=== PATIENT | male | born 1940 | race Caucasian/White ===

== ENCOUNTER 2017-03-10 10:53 | Emergency (ER) | payer MEDICARE ==
[~2017-03-10] VITALS: Ht 170.2 cm; Wt 70.0 kg
[2017-03-10] MEDS ORDERED: METFORMIN500 MG PO (11:12)
[2017-03-10] MEDS ORDERED: METOPROLOL SUC100 MG PO (11:13)
[2017-03-10] MEDS ORDERED: LISINOP/HCTZ1 TA1 PO (11:14)
[2017-03-10] MEDS ORDERED: ASPIRIN81 MG PO (11:15)
[2017-03-10] MEDS ORDERED: ALPHAGAN P0.1 % OD (11:16)
[2017-03-10] MEDS ORDERED: LATANOPROST0.005 % OU (11:17)
[2017-03-10] MEDS ORDERED: AMLODIPINE5 MG PO (11:19)
[2017-03-10] MEDS ORDERED: GLIPIZIDE5 MG PO (11:23)
[2017-03-10] MEDS ORDERED: TRAMADOL HCL50 MG PO (11:24)
[2017-03-10 11:48] LABS: HEMATOCRIT 45.9 % (39.0-50.0); HEMOGLOBIN 16.1 g/dl (14.0-18.0); IMMATURE GRANULOCYTES 0.3 % (0.0-1.0); MEAN CELL VOLUME 91.4 fL CALC (80.0-100.0); MEAN CORPUSCULAR HGB 32.1 pG CALC (26.0-32.0); MEAN CORPUSCULAR HGB CONC 35.1 g/L CALC (32.0-36.0); NEUT# 4.74 thou/uL (1.82-7.42); RED BLOOD COUNT 5.02 mill/uL (4.70-6.10); RED CELL DISTRI WIDTH 12.9 % (11.5-15.5)
[2017-03-10 12:11] LABS: ANION GAP 14 (6-22 (CALC)); BUN 12 mg/dL (8-23); BUN/CREATININE RATIO 16 (12-20 (CALC)); CARBON DIOXIDE 28 mmol/l (22-30); CHLORIDE 100 mmol/l (95-108); CREATININE 0.8 mg/dL (0.7-1.3); GFR > 60 ML/MIN (>=60 (CALC)); GFR FOR AFR.AMER. > 60 ML/MIN (>=60 (CALC)); POTASSIUM 4.2 mmol/l (3.5-5.1); SODIUM 138 mmol/l (137-146)
[2017-03-10 14:44] VITALS: BP 132/64
== END 2017-03-10 14:47 | disposition home or self-care (01) ==
LOC: ED 10:53
PROVIDERS: Family Medicine
DX: H57.8 Other specified disorders of eye and adnexa (principal); H54.62 Unqualified visual loss, left eye, normal vision right eye; I10 Essential (primary) hypertension; Z95.5 Presence of coronary angioplasty implant and graft
CPT/HCPCS: Q9967

== ENCOUNTER → 2018-04-19 | Outpatient (REF) | payer MEDICARE ==
[~2018-04-19] MED LIST: ALPHAGAN P0.1 % OD; AMLODIPINE5 MG PO; ASPIRIN81 MG PO; GLIPIZIDE5 MG PO; LATANOPROST0.005 % OU; LISINOP/HCTZ1 TA1 PO; METFORMIN500 MG PO; METOPROLOL SUC100 MG PO; TRAMADOL HCL50 MG PO
[2018-04-19 12:23] LABS: HEMATOCRIT 44.4 % (39.0-50.0); HEMOGLOBIN 15.4 g/dl (14.0-18.0); IMMATURE GRANULOCYTES 0.4 % (0.0-5.0); MEAN CELL VOLUME 90.8 fL CALC (80.0-100.0); MEAN CORPUSCULAR HGB 31.5 pG CALC (26.0-32.0); MEAN CORPUSCULAR HGB CONC 34.7 g/L CALC (32.0-36.0); NEUT# 4.88 thou/uL (1.82-7.42); RED BLOOD COUNT 4.89 mill/uL (4.70-6.10); RED CELL DISTRI WIDTH 12.5 % (11.5-15.5)
[2018-04-19 12:48] LABS: ALBUMIN 4.3 g/dL (3.2-5.0); ALKALINE PHOSPHATASE 58 u/l (38-126); ANION GAP 14 (6-22 (CALC)); BILIRUBIN, TOTAL 0.8 mg/dL (0.0-1.4); BUN 11 mg/dL (8-23); BUN/CREATININE RATIO 14 (12-20 (CALC)); CALCULATED LDLCHOLESTEROL 47 mg/dL (62-129 (CALC)); CARBON DIOXIDE 29 mmol/l (22-30); CHLORIDE 95 mmol/l (95-108); CHOLESTEROL HDL RATIO 1.8 (<4.4 (CALC)); CREATININE 0.8 mg/dL (0.7-1.3); GFR > 60 ML/MIN (>=60 (CALC)); GFR FOR AFR.AMER. > 60 ML/MIN (>=60 (CALC)); HDL CHOLESTEROL 68 mg/dL (>=40); POTASSIUM 4.3 mmol/l (3.5-5.1); SGOT/AST 17 u/l (19-48); SODIUM 134 mmol/l (137-146); TOTAL PROTEIN 6.6 g/dL (6.3-8.2); TOTAL TRIGLYCERIDES 51 mg/dl (30-149); VLDL CHOLESTROL 10 mg/dl (0-38 (CALC))
[2018-04-19 12:50] LABS: TOTAL CHOLESTEROL 125 mg/dl (0-199)
[2018-04-19 13:15] LABS: TSH, 3RD GENERATION 0.78 uIU/mL (0.47 - 4.68)
== END | disposition home or self-care (01) ==
LOC: LAB 10:35
PROVIDERS: ATTEND Internal Medicine
DX: E03.9 Hypothyroidism, unspecified (principal); E11.65 Type 2 diabetes mellitus with hyperglycemia; E55.9 Vitamin D deficiency, unspecified; E78.49 Other hyperlipidemia; I10 Essential (primary) hypertension